=== PATIENT | male | born 1945 | race Hispanic/Latino ===

== ENCOUNTER 2018-03-05 13:05 | Outpatient (CLI) | payer MEDICARE, BC ==
--- NOTE | 2018-03-05 17:37 | PET ---
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 TECHNIQUE: PET CT of the brain was performed following the intravenous administration of 8.8 millicuries F15-flu orodeoxyglucose in the left antecubital fossa. FINDINGS: There is hypometabolism noted in the temporoparietal lobes bilaterally (greater in the temporal lobes ). IMPRESSION: Findings are suspicious of Alzheimer's disease. POS: EZE
== END 2018-03-05 13:06 | disposition home or self-care (01) ==
LOC: PET 13:05
PROVIDERS: ATTEND Psychiatry & Neurology Neurology
DX: G31.1 Senile degeneration of brain, not elsewhere classified (principal)
CPT/HCPCS: 78608; A9552

== ENCOUNTER 2019-05-21 07:22 | Outpatient (CLI) | payer MEDICARE, BC ==
--- NOTE | 2019-05-21 12:10 | NM ---
Radionucleotide hepatobiliary scan and gallbladder ejection fraction. HISTORY: Upper abdomen pain. FINDINGS: Early images show physiologic uptake of radiotracer throughout the hepatic parenchyma. Gall bladder first visible at 21 minutes. Uptake within the small bowel at 41 minutes. After administration of fatty meal, there is good excretion of radiotracer from the gallbladder to th e small bowel. Ejection fraction calculated at 89%. IMPRESSION: Normal exam.
== END 2019-05-21 07:23 | disposition home or self-care (01) ==
LOC: NM 07:22
PROVIDERS: ATTEND Physician Assistant Medical
DX: R74.8 Abnormal levels of other serum enzymes (principal); R10.13 Epigastric pain; R93.3 Abnormal findings on diagnostic imaging of other parts of digestive tract
CPT/HCPCS: 78227; A9537